=== PATIENT | male | born 1960 | race Caucasian/White ===

== ENCOUNTER 2019-06-16 01:29 | Outpatient (CLI) | payer OTHER, SELFPAY ==
--- NOTE | 2019-06-16 13:10 | DI.CTLCSR_ITS ---
SYMPTOMS/DIAGNOSIS: SMOKER, F17.[address] FOR LUNG CANCER SCREENING: Comparison is made with [id number]. A few scattered bilateral tiny calcified nodules are again noted. No new pulmonary nodules are identified. There is no evidence of adenopathy, pleural or pericardial effusions. No infiltrates are seen. There are no destructive bony lesions. Calcification is again seen in the right adrenal gland. There is nonobstructing stone in the left kidney. The heart size is normal. There is minimal aortic calcification. IMPRESSION: Lung Rads Category 1, negative. Continued annual low dose screening CT is recommended.
== END 2019-06-16 01:49 ==
PROVIDERS: PCP Nurse Practitioner Family; Visit Provider Nurse Practitioner Family
DX: Z12.2 Encounter for screening for malignant neoplasm of respiratory organs (principal); F17.210 Nicotine dependence, cigarettes, uncomplicated; R91.8 Other nonspecific abnormal finding of lung field
CPT/HCPCS: G0297

== ENCOUNTER 2019-06-21 10:54 | Day surgery (SDC) | payer OTHER, SELFPAY ==
[2019-06-21 11:30] VITALS: BP 121/79; PULSE 58; RESP 18; TEMP 36.3; O2SAT 98
[2019-06-21] MEDS: Lactated Ringers 1,000 ML 80 ML IV (12:00)
[2019-06-21] MEDS: ceFAZolin 1 GM/50 ML BAG IVPB (13:15)
--- NOTE | 2019-06-21 14:19 | W.PM.DSUDISC ---
Discharge Plan Disposition Patient Disposition: HOME Condition: Good Discharge Details Reason For Visit: Partial palmar fasciectomy R Attending Provider: Dallas Schaeffer Primary Care Provider: Meena Resendiz Home Meds and New Rx's Prescriptions: New hydrocodone-acetaminophen 5-325 mg tablet 1 tab PO Q6H PRN (Reason: pain) Qty: 14 RF: 0 No Action trazodone 150 mg tablet 150 mg PO QHS RF: 0 Discharge Instructions Additional Instructions: Keep dressings and splint dry and intact until return. Cover with plastic bag sealed with rubber band around forearm to shower. Wiggle fingers R hand 10 times/hour when awake to decrease swelling. Follow up with in 2 weeks. Take tylenol or ibuprofen for mild pain. Take hydrocodone for breakthru pain, if needed. Referrals: Dallas Schaeffer MD [ [facility] STAFF PHYSICIAN] - (f/u in 2 weeks.) Equipment/Supplies: Splint Activity:: Activity as Tolerated Remove Dressings/Wound Care:: Do Not Remove Shower/Bathe:: Cover Diet:: As Tolerated Discharge Orders Discharge Orders: Discharge Order (Routine); Ordered 06/21/19 Ordered By: Dallas Schaeffer DS: Diagnosis Discharge Diagnosis (1) Fasciitis: Status: Acute
[2019-06-21 15:00] VITALS: BP 131/82; PULSE 55; RESP 18; TEMP 36.7; O2SAT 94
[2019-06-21] MEDS: oxyCODONE-CR 10 MG TABCR PO (15:00)
--- NOTE | 2019-06-22 06:28 | ROE_ITS ---
REPORT OF OPERATIVE PROCEDURE DATE OF PROCEDURE June 21, 2019 PREOPERATIVE DIAGNOSES Nodular palmar fascitis right with MP joint contracture of the little finger. POSTOPERATIVE DIAGNOSES Nodular palmar fascitis right with MP joint contracture of the little finger. PROCEDURES Partial palmar fasciectomy right. Application of short arm splint. ANESTHESIA IV regional, John Smyth C.R.N.A. SURGEON Dallas Schaeffer M.D. PROFESSOR OF COMM[employer]ICATION [employer] ERWIN Okeefe INDICATIONS This is a 58-year-old white male who has nodular palmar fascitis bilaterally. On the right however, he has developed an MP joint contracture of the right little finger. This MP joint contracture is mor e than 30 degrees. He had one large band going to the little finger. The other digits appeared to be uninvolved. Because of the MP joint contracture, excision of diseased palmar fascia and the longitudi nal band was recommended. The risks and complications of the procedure were explained to the patient in detail preoperatively. PROCEDURE The patient was taken to the Operating Room on 06/21/2019. He was placed supine on the Operating Tab le. IV regional anesthesia was administered to the right upper extremity. Once good anesthesia was obtained, the right hand, wrist and forearm were prepped and draped free in the usual sterile fashion . The aluminum hand retractor was then placed on the right hand extending the digits. A Jack-type zigzag incision was then made basically over the single longitudinal fascial band starting at the rad ial side of the middle flexion crease of the little finger and carried across the other flexion creas es in the palmar in a zigzag fashion to end at the distal edge of the volar carpal ligament. Sharp dissection was used to create full-thickness skin flaps and free the skin from the diseased pal mar fascia. I perforated the skin in one place while making the flaps it was not thought to be of any consequence. Once the skin flaps had been developed, I started proximally at the distal edge of the volar carpal ligament and incised the palmar fascia. I then freed up the palmar fascia in a proximal distal direction. The digital nerves were identified on either side of the little finger metacarpal, they were protected while the palmar fascia was dissected from it. The dissection was carried out to the level of the PIP joint over the flexor sheath. The diseased fascia was removed completely. Proxim al nicole of the flexor sheath of the little finger was incised to prevent future triggering of the f pippa. At this point, the wound was irrigated with saline solution. The wound margins were infiltrate d with 0.5% Marcaine with epinephrine solution. The skin edges were loosely approximated with interru pted #4-0 Nylon sutures. The wound was dressed with Xeroform gauze, fluff gauze, 4x4s in the palmar b etween the fingers, and wrapped with a Kerlix bandage. A volar fiberglass splint was then applied car rying it just beyond the MP joint of the little finger. It was applied with a 4-inch Enrique bandage. The IV regional anesthesia was reversed without complications. The patient tolerated the procedure well and was discharged to the Recovery Room in good condition. The patient was discharged home from the Day Surgery Unit when fully recovered from his IV regional a nesthesia. He was given instructions to elevate his right hand above heart level as much as possible for the next 24 hours. He was encouraged to wiggle his fingers 10 times an hour while awake to prevent swelling. He is to keep the dressings intact and dry until he follows up with Dr. Schaeffer in two weeks. He will take Tylenol or ibuprofen for mild pain. He was given a prescription for breakthrough pain of hydrocodone with APAP 5/325, 1 tablet every 6 hours as needed.
== END 2019-06-21 15:30 | disposition home or self-care (01) ==
PROVIDERS: PCP Nurse Practitioner Family; Visit Provider Orthopaedic Surgery
PROC: (CPT 26123; principal; 2019-06-21 13:15)
DX: M72.8 Other fibroblastic disorders (principal); M24.541 Contracture, right hand
CPT/HCPCS: 26123; J0690; J1100; J1885; J2250; J2405; J3010

== ENCOUNTER 2020-12-12 19:24 | Outpatient (REF) | payer OTHER, SELFPAY ==
[2020-12-12 21:42] LABS: Abs Immature Grans 0.02 10^3/uL (0.0-0.06); Absolute Basophil Count 0.08 10^3/uL (0.0-0.2); Absolute Eosinophil Count 0.33 10^3/uL (0.0-0.7); Absolute Lymphocyte Count 1.74 10^3/uL (1.2-3.4); Absolute Monocyte Count 0.67 10^3/uL (0.1-0.8); Absolute Neutrophil Count 4.03 10^3/uL (1.2-6.7); Basophils % 1.2; Eosinophils % 4.8; HCT 43.5 % (40.0-50.0); HGB 14.2 g/dL (13.5-17.5); Immature Grans % 0.3; Lymphocytes % 25.3; MCH 29.4 pg (27.0-33.0); MCHC 32.6 % (32.0-36.0); MCV 90.1 fL (80-95); MPV 11.3 fL (8.0-11.0); Monocytes % 9.8; Neutrophils % 58.6; Nucleated RBC 0 %; Platelet Count 242 10^3/uL (130-400); RBC 4.83 10^6/uL (4.36-5.78); RDW 13.2 % (11.8-14.1); RDW-SD 44.3 fL; WBC 6.87 10^3/uL (4.4-10.8)
[2020-12-12 21:47] LABS: Iron 94 ug/dL (65-175); Total Iron Binding Capacity 336 ug/dL (250-450); Transferrin Sat 28 % (20-55)
[2020-12-12 22:00] LABS: ALT 21 U/L (16-63); AST 21 U/L (15-37); Albumin 4.1 g/dL (3.4-5.0); Alkaline Phosphatase 66 U/L (46-116); Anion Gap 8.4 mmol/L (3-11); BUN 12 mg/dL (7-18); Bilirubin, Total 0.6 mg/dL (0.2-1.0); CO2 26.6 mmol/L (21.0-32.0); Calcium 8.9 mg/dL (8.5-10.1); Calculated LDL 94 mg/dL (<100); Chloride 104 mmol/L (98-107); Cholesterol 154 mg/dL (<200); Glucose 67 mg/dL (74-106); HDL Cholesterol 51 mg/dL (40-60); Magnesium 2.1 mg/dL (1.8-2.4); Potassium 4.2 mmol/L (3.5-5.1); Sodium 139 mmol/L (136-145); TSH (W/Ref FT4) 1.23 uIU/mL (0.36-3.74); Total Protein 7.1 g/dL (6.4-8.2); Triglyceride 45 mg/dL (<150)
== END 2020-12-12 19:44 ==
LOC: NCHCN 19:24
PROVIDERS: PCP Nurse Practitioner Family; Visit Provider Nurse Practitioner Family
DX: R03.0 Elevated blood-pressure reading, without diagnosis of hypertension (principal); Z00.00 Encounter for general adult medical examination without abnormal findings; F17.210 Nicotine dependence, cigarettes, uncomplicated; G47.33 Obstructive sleep apnea (adult) (pediatric); G47.00 Insomnia, unspecified; G47.61 Periodic limb movement disorder; R22.33 Localized swelling, mass and lump, upper limb, bilateral; L80 Vitiligo
CPT/HCPCS: 80053; 80061; 83540; 83550; 83735; 84443; 85025

== ENCOUNTER 2020-12-25 02:00 | Outpatient (CLI) | payer OTHER, SELFPAY ==
--- NOTE | 2020-12-25 12:54 | DI.CTLCSR_ITS ---
EXAM: CT CHEST LUNG CANCER SCREEN CLINICAL HISTORY: SCREENING FOR LUNG CA, CURRENT SMOKER, F17.210 TECHNIQUE: Imaging Protocol: Axial computed tomography images with coronal and sagittal reformatted images were created and reviewed COMPARISON: CT CT CHEST LUNG CANCER SCREEN from 06/16/2019 FINDINGS: Tracheobronchial tree: Patent where visualized. Mediastinum and Savana: No dominant adenopathy or fluid collection. There is a small hiatal hernia. Pulmonary parenchyma: No consolidation or dominant measurable mass. Mild peripheral pulmonary scarrin g is noted. There are scattered calcified granuloma. Lung Nodules: No noncalcified pulmonary nodules. Pleura: No effusion or pneumothorax. Heart: The heart is not dilated. No coronary artery calcifications are seen. No significant pericardi al effusion. Aorta: Thoracic aorta non-dilated.Mild atherosclerosis. Upper abdomen: Stable right adrenal calcification. Nonobstructing stones are seen in the upper pole of the left kidney. The largest measures 0.4 cm. Bones: Degenerative changes are seen in the spine. There is a mild left convex scoliosis of the thor acic spine. Soft Tissues: Unremarkable. IMPRESSION: No noncalcified pulmonary nodules. Lung RADS Cat 1 - Negative: No nodules and definitely benign nodules Lung-RADS 1.0 CATEGORIES: Category 0 - Prior chest CT exam(s) being located for comparison. Category 1 - Annual screening in 12 months. No nodules or definitely benign nodules. Category 2 - Annual screening in 12 months. Benign appearance. Nodules with low likelihood of becomin g active cancer. Category 3 - 6-month follow-up. Probably benign. Short-term follow-up suggested. Nodules with low lik elihood of becoming active cancer. Category 4A - 3-month follow-up and CT/PET if >8 mm in size. Suspicious finding. Findings which requi re additional testing. Category 4B - Findings which require additional testing and tissue sampling. Suspicious finding. C Added to Any of the Above - History of prior lung cancer screening. S Added to Any of the Above - Significant unexpected other finding. RADIATION DOSE DELIVERED: 80.06mGy.cm Total DLP DATA REPOSITORY: All CT scans at this facility are submitted to the National Radiology Data Registry (NRDR) Dose Index Registry (DIR) with the [employer] (ACR). RADIATION OPTIMIZATION: All CT scans at this facility use at least one of these dose optimization te chniques: automated exposure control; mA and/or kV adjustment per patient size (includes targeted exa ms where dose is matched to clinical indication); or iterative reconstruction.
== END 2020-12-25 02:01 | disposition home or self-care (01) ==
LOC: DI 02:01
PROVIDERS: PCP Nurse Practitioner Family; Visit Provider Nurse Practitioner Family
DX: F17.210 Nicotine dependence, cigarettes, uncomplicated (principal); R91.8 Other nonspecific abnormal finding of lung field
CPT/HCPCS: 71271

== ENCOUNTER 2022-01-07 15:32 | Outpatient (REF) | payer OTHER, SELFPAY ==
[2022-01-07 22:06] LABS: Anion Gap 6.8 mmol/L (3-11); BUN 20 mg/dL (7-18); CO2 30.2 mmol/L (21.0-32.0); Calcium 8.8 mg/dL (8.5-10.1); Chloride 104 mmol/L (98-107); Glucose 88 mg/dL (74-106); Potassium 4.6 mmol/L (3.5-5.1); Sodium 141 mmol/L (136-145)
== END 2022-01-07 15:33 | disposition home or self-care (01) ==
LOC: NCHCN 15:32
PROVIDERS: PCP Nurse Practitioner Family; Visit Provider Nurse Practitioner Family
DX: I10 Essential (primary) hypertension (principal)
CPT/HCPCS: 80048

== ENCOUNTER 2022-03-26 01:50 | Outpatient (CLI) | payer OTHER, SELFPAY ==
--- NOTE | 2022-03-26 | DI.MRI_ITS ---
Exam(s) MR LUMBAR SPINE WO EXAM: MR LUMBAR SPINE WO CLINICAL HISTORY: LOW BACK PAIN M54.59 LEG LENGTH DISCREPANCY M21.70. TECHNIQUE: Multiplanar multisequence MRI was performed. COMPARISON: No exams were available for comparison FINDINGS: MR examination lumbosacral spine was performed according to the usual protocol. No significant bony signal abnormality seen. Mild to moderate facet hypertrophic degenerative changes noted at L4-5 and L5-S1 bilaterally. There is signal loss in intervertebral discs at L4-5 and L5-S1 consistent with disc degeneration. Conus medullaris appears intact. No bony central canal spinal stenosis identified. From the T11-12 through L3-4 levels, there is no evidence of a disc herniation, central canal spinal stenosis, or neural foraminal stenosis. At L4-5, there is an apparent annular tear and there is a moderate disc bulge without evidence of sig nificant focal disc herniation. No neural foraminal narrowing. At L5-S1, there is right-sided neural foraminal narrowing secondary to facet hypertrophy and endplate hypertrophy at this level. IMPRESSION: No significant disc herniation identified. Right-sided neural foraminal narrowing noted at L5-S1 as described above. DATA REPOSITORY:
== END 2022-03-26 02:10 ==
LOC: DI 01:50
PROVIDERS: PCP Nurse Practitioner Family; Visit Provider Nurse Practitioner Family
DX: M54.59 Other low back pain (principal); M21.70 Unequal limb length (acquired), unspecified site; M47.817 Spondylosis without myelopathy or radiculopathy, lumbosacral region
CPT/HCPCS: 72148

== ENCOUNTER 2023-02-16 18:01 | Outpatient (REF) | payer BC, SELFPAY ==
[2023-02-16 20:41] LABS: ALT 25 U/L (16-63); AST 28 U/L (15-37); Albumin 4.2 g/dL (3.4-5.0); Alkaline Phosphatase 68 U/L (46-116); Anion Gap 7.2 mmol/L (3-11); BUN 16 mg/dL (7-18); CO2 29.8 mmol/L (21.0-32.0); CREATININE 1.2 mg/dL (0.70-1.30); Calcium 9.1 mg/dL (8.5-10.1); Calculated LDL 97 mg/dL (<100); Chloride 103 mmol/L (98-107); Cholesterol 169 mg/dL (<200); Estimated GFR 68.38 (mL/min/1.73m2); Glucose 77 mg/dL (74-106); HDL Cholesterol 65 mg/dL (40-60); Potassium 4.5 mmol/L (3.5-5.1); Sodium 140 mmol/L (136-145); Triglyceride 39 mg/dL (<150)
== END 2023-02-16 18:02 | disposition home or self-care (01) ==
LOC: NCHCN 18:01
PROVIDERS: PCP Nurse Practitioner Family; Visit Provider Nurse Practitioner Family
DX: I10 Essential (primary) hypertension (principal); F17.210 Nicotine dependence, cigarettes, uncomplicated; G47.61 Periodic limb movement disorder; G47.00 Insomnia, unspecified; G47.33 Obstructive sleep apnea (adult) (pediatric)
CPT/HCPCS: 80053; 80061

== ENCOUNTER 2023-06-08 12:48 | Day surgery (SDC) | payer BC, SELFPAY ==
[2023-06-08 13:19] VITALS: BP 127/85; PULSE 78; RESP 17; TEMP 37; O2SAT 97
--- NOTE | 2023-06-08 15:17 | W.PM.DSUDISC ---
Date of service: 06/08/23 Time of Service: 15:20 Discharge Plan Disposition Patient Disposition: Home Condition: Good Discharge Details Reason For Visit: Left Dupuytren's Contracture Attending Provider: Nba Madden Primary Care Provider: Meena Resendiz Home Meds and New Rx's Prescriptions: New acetaminophen 500 mg tablet 500 mg PO Q6H PRN (Reason: pain) Qty: 60 2RF hydrocodone-acetaminophen 5-325 mg tablet 1 tab PO Q6H PRN (Reason: severe pain) Qty: 4 0RF Rx Instructions: Take one tablet up to every 6 hours as needed for severe postoperative pain ibuprofen 600 mg tablet 600 mg PO TID PRN (Reason: pain) Qty: 60 0RF Continued trazodone 150 mg tablet 150 mg PO QHS lisinopril 10 mg tablet 10 mg PO DAILY Discharge Instructions Additional Instructions: Dupuytren's Contracture Discharge Instructions Activity: You may use your fingers for light activity. You should limit any excessive motion or forceful gripping until the sutures have been removed. Dressings: You should keep the initial surgical dressing in place for at least 3 days. You may remove your dressings and get the wound wet after 3 days. You should keep the dressings and the wound clean at all times. You may keep the initial dressing in place until your follow-up but keep the wound covered with light gauze until the sutures are removed. Medications: - You should take Tylenol and Ibuprofen around the clock as prescribed or per prints and drawings curator's recommendations. - You have Hydrocodone prescribed for breakthrough pain control. Take only as needed and limit use as much as possible. This may cause constipation. Follow-up: 7-10 days for wound check and suture removal. Referrals: Nba Madden MD [ [facility] STAFF PHYSICIAN] - Activity:: Elevate Remove Dressings/Wound Care:: 72 hours Shower/Bathe:: 72 hours Diet:: As Tolerated Discharge Orders Discharge Orders: Discharge Order (Routine); Ordered 06/08/23 Ordered By: Gail Short
[2023-06-08] MEDS: Sodium Bicarbonate 50 MEQ/50 ML VIAL (16:02)
[2023-06-08] MEDS: Lidocaine 1% Multi-Dose W/EPI 1/100,000 50 ML VIAL (16:02)
[2023-06-08 16:15] VITALS: BP 141/84; PULSE 69; RESP 18; TEMP 37.1; O2SAT 95
--- NOTE | 2023-06-08 21:37 | W.PM.OP ---
Date of service: 06/08/23 Time of Service: 16:10 Operative Note Operative Note DATE OF PROCEDURE: 06/08/23 PRE-OP DIAGNOSIS: Dupuytren's Contracture - Left Hand POST-OP DIAGNOSIS: same PROCEDURE: Partial Palmar Fasciectomy - Left Hand SURGEON: Nba Madden ANESTHESIA TYPE: Local By Surgeon Refer to Anesthesia Record ESTIMATED BLOOD LOSS: 0 PATHOLOGY: none sent TOURNIQUET TIME: 0 COMPLICATIONS: None Patient was transported to: same day Patient's condition: stable Indications: Lebron is a 62 year old male who has had symptoms of Dupuytren's contracture of the left hand with a prominent nodule and contracture of the little finger. Nonoperative treatment options had been trialed. Given their failure, I offered operative intervention. I reviewed the technical details of a partial palmar fasciectomy. I reviewed the risk of the procedure to include bleeding, infection, pain, stiffness, tendon instability, damage nerves and vessels, recurrence, wound or skin healing difficulties. Despite these risks, the patient elected to proceed. Findings: There was a large nodular deformity of the palm with contracture of the little finger involving a central cord of the little finger and the ring finger. Procedure Description: Lebron was greeted in the preoperative holding area. Name and surgical site were confirmed. The history and physical was completed. The consent was reviewed the patient and signed. He was taken back to the operating room. The left hand was then prepped with ChloraPrep and draped in a standard fashion. A timeout was performed for safe surgery. The surgical site was drawn on the skin. The planned surgical field was anesthetized with sodium bicarbonate buffered 1% lidocaine with epinephrine. He tolerated this well and once it was confirmed to be set up surgery was proceeded. A incision was taken longitudinally over the proximal base of the central cord and then extended in an oblique fashion across the flexion creases extending towards the ring finger in order to capture some of the central cord of the ring finger which is less problematic. It was then taken all the way to the base of the little finger. The skin was incised sharply. The nodule which was present about the far ulnar aspect of the palm was intimately associated with the epidermis and therefore I excised the skin with this nodule and continued to elevate up the skin flaps to expose the palmar fibromatosis. Once the primary central cord was identified was transected proximally and elevated out of the hand from proximal to distal including the large nodule. This was taken all the way down to the base of the little finger where it seemed to attach to the flexor tendon aspect of the proximal phalanx. This was transected distally and there is no to be full extension of the little finger MP joint at this time. I then continue to work slightly more radially to identify the central cord affecting the ring finger. There is a small natatory cord component which was also transected and a portion of the central cord to the ring finger was also excised sharply. 2 areas of puckering of skin from attachment underlying cord were also released and some of this cord content was also resected as well. The wound was then thoroughly irrigated. There is no significant bleeding. The skin was reapproximated with #4-0 nylon sutures. The area of skin resection was able to be closed primarily. The wound was dressed with Xeroform followed by 4 x 4's. This was followed up with a conformer and Enrique wrap. At the end the case all counts were correct. Patient was transferred back to same day surgery area in stable condition.
== END 2023-06-08 16:46 | disposition home or self-care (01) ==
PROVIDERS: PCP Nurse Practitioner Family; Visit Provider Student in an Organized Health Care Education/Training Program
PROC: (CPT 26123; principal; 2023-06-08 14:45)
DX: M72.0 Palmar fascial fibromatosis [Dupuytren] (principal); I10 Essential (primary) hypertension
CPT/HCPCS: 26123

== ENCOUNTER 2023-09-24 08:48 | Day surgery (SDC) | payer BC, SELFPAY ==
--- NOTE | 2023-09-23 21:42 | W.COLOREPORT ---
Date of service: 09/24/23 Time of Service: 10:38 Colonoscopy Report Date of procedure: 09/24/23 Pre-op diagnosis general: CRC screen Post-op diagnosis procedure note: other (Diverticula and polyps) Surgeon: Gail Morrow Anesthesia Type: General:No Airway Estimated blood loss (mL): 1 Pathology: other Complications: None Disposition: same day Prep: Miralax/Dulcolax Retraction Time: 10 Procedure Description: After informed consent was obtained the patient was taken to the procedure room and placed in a left decubitous position. Monitors were applied and a time out was done. The patients name, date of , procedure, allergies to medications and metal in their body was reviewed. The patient was then sedated. Once sedated and comfortable a rectal exam was done. External exam was normal. Internal exam revealed a normal sphincter tone and no palpable masses. The prostate normal. The scope was then introduced and retrofelexed. No internal hemorrhoids were identified. The scope was then advanced to the cecum without difficulty. The TI and appendiceal orifice were identified. The prep was BBPS 3 in all segments for total of 9. The scope was then slowly retracted over 10 minutes back into the rectum. He had a small diverticula that do carry up to the splenic flexure. There is no signs of active bleeding or infection. He has a small flat 5 mm polyp at 20 cm. This is removed with a cold biting forcep. All specimen is retrieved and no bleeding is noted. The mucosa is pink and healthy with a normal vascular pattern. The scope was removed and the patient was woken up and taken back to Same day surgery in stable condition. The patient tolerated the procedure well and there were no immediate complications. Follow up: The patient should follow up in ~7 years unless, path pd, they develop changes in bowel habits or other new gastrointestinal complaints.
--- NOTE | 2023-09-23 21:45 | PDOC.DSDIS_ITS ---
Date of service: 09/24/23 Time of Service: 11:30 Discharge Plan Disposition Patient Disposition: Home Condition: Good Discharge Details Reason For Visit: colon scope Attending Provider: Gail Morrow Primary Care Provider: Meena Resendiz Home Meds and New Rx's Prescriptions: Continued trazodone 150 mg tablet 150 mg PO QHS lisinopril 10 mg tablet 10 mg PO DAILY Discontinued polyethylene glycol 3350 17 gram/dose powder 238 g PO ONCE Qty: 238 0RF Rx Instructions: take per colonoscopy instructions bisacodyl [Dulcolax (bisacodyl)] 5 mg tablet,delayed release (DR/EC) 5 mg PO ONCE Qty: 4 0RF Rx Instructions: take per colonoscopy instructions Discharge Instructions Additional Instructions: [facility] Colonoscopy Post- Op Instructions Instructions for Everyone who is given Anesthesia: For your safety, please do the following for the next twenty-four (24) hours: *Do Not operate a motor vehicle (car, truck, motorcycle, etc.) *Do Not drink alcoholic beverages or use any recreational drugs for the first 24 hours or while taking pain medications. The medications in your body may have a reaction that can be dangerous. *Do Not make any important decisions or sign any important papers. Findings: small polyp diverticula-make sure you are moving your bowels on a regular basis and you are not straining to go to the bathroom. If you find you are having problems with constipation or straining, then we recommend starting a daily fiber product such as Metamucil. Follow up: My office will send you a letter in 2 to 3 weeks time with the results of the polyp pathology and when we want you to repeat the colonoscopy, Probably 7 years time 1. No lifting over 20 pounds or strenuous activity for the first 24 hours after your procedure. After 24 hours there are no restrictions on your activity but you may feel fatigued for a few days. 2. After you arrive home you may have a light meal and return to your normal diet as you can tolerate it without feeling sick to your stomach. 3. You may have a bloated, gaseous feeling in your belly (abdomen) after a colonoscopy. Passing gas and belching will help. Walking or lying down on your left side with your knees flexed may relieve the discomfort. Call the office at [phone] (Office) or [phone] (Hospital) right away if you notice any of the following: a.Vomiting of blood or ?coffee ground stools?. b.Rectal bleeding 1Tbsp, blood clots or continuous bleeding. c.Severe belly (abdominal) pain. d.A hard distended belly (abdomen) and an inability to pass gas. 4. Please don?t expect to have a normal BM (bowel movement) for 2-3 days after your procedure. 5. If there are questions regarding the findings of your procedure, please contact your doctor 6. If you are unable to contact your doctor with a problem, contact the hospital at [phone]. 7. Continue all your regular medications unless directed otherwise. I understand the above instructions and have no questions. Signature of Patient or Adult Escort Name of Responsible Adult Escort Signature of Nurse Date/Time Stand Alone Forms: Anesthesia Discharge Inst., Vivi Hector ([facility]) Activity:: see above Diet:: see above Discharge Orders Discharge Orders: Discharge Order (Routine); Ordered 09/24/23 Ordered By: Gail Morrow DS: Diagnosis Discharge Diagnosis (1) SILVANO (obstructive sleep apnea): Status: Chronic (2) Smoker: (3) Hypertension: (4) Screening for malignant neoplasm of colon performed: Status: Acute Asessment and Plan: The patient is seen and examined after their colonoscopy.? The patient has been able to pass gas.? They are not having abdominal pain.? They have been able to tolerate liquids and a snack.? They do not have any nausea or vomiting.? They are not having any chest pain or shortness of breath.??? They are not having any rectal bleeding. Their vital signs have been stable-see nursing notes. We discussed findings during their colonoscopy, and any biopsies that were done/polyps that were removed. The patient will be sent a letter with any biopsy results, and when to repeat the colonoscopy.-see discharge instructions. Patient was given explicit instructions to follow-up regarding colonoscopy-refer to discharge instructions.? We reviewed resumption of medications. Patient verbalized understanding and discharged in stable and satisfactory condition- See nursing notes. (5) Diverticula of colon: Status: Acute
[2023-09-24 08:45] VITALS: BP 118/77; PULSE 73; RESP 18; TEMP 36.9; O2SAT 97
[2023-09-24] MEDS: Lactated Ringers 1,000 ML 80 ML IV (09:23)
--- NOTE | 2023-09-24 09:38 | W.ANESPRE ---
General Info Date of Service Date Performed: 09/24/23 Height: 5 ft 8 in Weight: 71.4 kg Body Mass Index (BMI): 23.9 Surgical Procedure: Operation Date: 09/24/23 09:50 Proposed Procedure Side Surgeon andrea Morrow, Meds Allergies and Home Medications Allergies Allergy/AdvReac Type Severity Reaction Status Date / Time No Known Allergies Allergy Verified 09/24/23 09:08 Home Medication Medication Instructions Recorded trazodone 150 mg tablet 150 mg PO QHS 06/06/19 lisinopril 10 mg tablet 10 mg PO DAILY 02/23/23 bisacodyl 5 mg tablet,delayed 5 mg PO ONCE colonscopy bowel prep 09/16/23 release (Dulcolax (bisacodyl)) #4 tabs polyethylene glycol 3350 17 238 g PO ONCE colonoscopy prep 09/16/23 gram/dose oral powder #238 grams Current Visit Medications: Current Medications Generic Name Dose Route Start Last Admin Trade Name Freq PRN Reason Stop Dose Admin Hyoscyamine Sulfate 0.125 mg 09/24/23 08:34 Hyoscyamine 0.125 Mg Sl/Oral/Chew SL 10/24/23 08:33 DIRECTED PRN Ringer's Solution 1,000 mls @ 80 mls/hr 09/24/23 06:00 09/24/23 09:23 IV 10/23/23 23:59 80 mls/hr INFUSION PERLITA Administration IV Miscellaneous Supplies 1 each 09/24/23 06:00 Iv Access IV 10/23/23 23:59 DIRECTED PERLITA Ondansetron HCl 4 mg 09/24/23 08:34 Ondansetron 4 Mg/2 Ml Vial IVP 10/24/23 08:33 Q4H PRN PRN Nausea / Vomiting Sodium Chloride 0 ml 09/24/23 06:00 Normal Saline Flush 10 Ml Syr IV 10/23/23 23:59 PRN PRN Sodium Chloride 0 ml 09/24/23 06:00 Normal Saline 10 Ml Vial IJ 10/23/23 23:59 DIRECTED PRN Sterile Water 0 ml 09/24/23 06:00 Water,Injection,Sterile 10 Ml Vial IJ 10/23/23 23:59 DIRECTED PRN PFSH Active Problems Active Problems: Problem Status Onset Code Screening for malignant neoplasm of colon performed Z12.11 Dupuytren's contracture of left hand M72.0 SILVANO (obstructive sleep apnea) G47.33 History of hand surgery Z98.890 Fasciitis M72.9 Medical History Medical History Nodule of skin of both hands Low back pain Erectile dysfunction Smoker Insomnia Hearing loss Periodic limb movement disorder Hypertension Umbilical hernia History of hearing loss History of sleep apnea Surgical History Surgical History History of hand surgery Right partial palmar fasciectomy DOS: 06/21/19 History of colonoscopy (~02/19/12) History of hernia repair Tobacco Smoking/Tobacco Use Status: Current every day Tobacco Type: cigarettes Years smoked: 40 Alcohol Alcohol Intake: current Alcohol intake frequency: a few times a month Alcohol type: beer Substance Use Substance use: Never Substance use type: does not use Vital Signs and Lab Results Vital Signs Most Recent Vital Signs in EMR: Most Recent Vital Signs Temp Pulse Resp BP Pulse Ox 36.9 C 73 18 118/77 97 09/24/23 08:45 09/24/23 08:45 09/24/23 08:45 09/24/23 08:45 09/24/23 08:45 Lab Results Blood Type / Crossmatch: No Data to Display Complete Blood Count: No Data to Display Complete Metabolic Panel: No Data to Display Liver Function Panel: No Data to Display Coagulation Panel: No Data to Display Cardiac Panel: No Data to Display Arterial Blood Gas: No Data to Display Venous Blood Gas: No Data to Display Pancreas Panel: No Data to Display Thyroid Panel: No Data to Display Infectious Disease: No Data to Display Blood Cultures: No Data to Display Toxicology Panel: No Data to Display Anesthesia Assessment and Plan Anesthesia History Personal History: No History of Anesthesia Complications Family History: No Family History of Anesthesia Complications Exercise Tolerance Exercise Tolerance: Metabolic Equivalents>4 Pertinent Negatives Pertinent Negatives: No Symptoms of GERD, No Major Cardiovascular Symptoms or Complaints and No History of CVA/TIA Cardiac & Pulmonary Exam Cardiac Exam: Normal S1/S2 Heart Sounds Pulmonary Exam: Clear Bilateral Breath Sounds Implantable Cardiac Device Does patient have a Pacemaker or an ICD?: No Airway Exam Known Difficult Airway: No Mallampati Class: 2 Mouth Opening: Normal (> 3cm) Thyromental Distance: Less than 3 cm Facial Hair: Full Jones Neck Range of Motion: Full ROM Neck Circumference: Normal Teeth Condition: Removable Dentures/Plates Upper and Removable Dentures/Plates Lower ASA Classification ASA Score: ASA 2 Emergency Case?: No NPO Status NPO Status: NPO Clears >2 hours, Solids >8 hours Anesthesia Plan Resuscitation Status: Full Code Anesthesia Technique: General Anesthesia Airway Planned: Natural Airway Monitors Used: Standard Monitors
[2023-09-24 09:41] VITALS: BMI 23.9
--- NOTE | 2023-09-24 10:30 | BOWEL_PTH ---
PATIENT: Lebron Brewer LOC: [facility] U#:[id number] AGE/SX: 63/M ROOM: RE09/24/[address]: Gail Morrow : 1960 BED: DIS: 09/24/2023 SPEC #: [id number] RECD: 09/24/23 12:53 STATUS: SOLEDAD REQ #: [id number] BARBARA: 09/24/23 10:[address]: Gail Morrow DEPT: Surgical Specimen RECD BY: Alyssa Glasgow ENTERED: 09/24/23 12:54 SP TYPE: Bowel OTHR DR: Meena Rseendiz Tissues: 1 - BIOPSY BOWEL Procedures: GROSS AND MICRO LEVEL 4 Comments: [id number]
[2023-09-24 10:40] VITALS: BP 102/73; PULSE 66; RESP 16; TEMP 36.6; O2SAT 96
[2023-09-24 11:08] VITALS: BP 110/80; PULSE 66; RESP 18; TEMP 36.6; O2SAT 97
--- NOTE | 2023-09-24 11:42 | W.ANESPOSTOP ---
Postoperative Evaluation Date, Time and Location Date Performed: 09/24/23 Time Performed: 11:09 Patient Location: Day Surgery Unit Vital Signs Most Recent Imported Vital Signs: Most Recent Vital Signs Temp Pulse Resp BP Pulse Ox 36.6 C 66 18 110/80 97 09/24/23 11:08 09/24/23 11:08 09/24/23 11:08 09/24/23 11:08 09/24/23 11:08 Pain Score Most Recent Pain Score: Most Recent Pain Score Pain Level 0 09/24/23 11:08 Assessment Mental Status: Awake (Alert & Oriented to Patient Baseline) Airway and Respiratory Function: Patent airway with normal (patient baseline) respiratory exam Cardiovascular Function: Hemodynamically Stable Hydration Status: Adequately Hydrated Nausea & Vomiting: No Nausea or Vomiting Pain: Pt. Denies Any Pain Peripheral Nerve Block: Patient did not receive a nerve block
== END 2023-09-24 11:40 | disposition home or self-care (01) ==
PROVIDERS: PCP Nurse Practitioner Family; Visit Provider Surgery
PROC: 0DJD8ZZ Inspection of Lower Intestinal Tract, Via Natural or Artificial Opening Endoscopic (ICD-10-PCS; CPT 45378; principal; 2023-09-24 09:45)
DX: Z12.11 Encounter for screening for malignant neoplasm of colon; K63.5 Polyp of colon; K57.30 Diverticulosis of large intestine without perforation or abscess without bleeding; I10 Essential (primary) hypertension; F17.200 Nicotine dependence, unspecified, uncomplicated
CPT/HCPCS: 45380; 88305; J2001

== ENCOUNTER 2023-10-25 10:58 | Emergency (ER) | payer BC, SELFPAY ==
--- NOTE | 2023-10-25 10:45 | RT.EKG_ITS ---
APPROVED REPORT Exam: Resting ECG Reason for Exam: dizziness Patient Location: E HR:82 bpm ECG Measurements Heart Rate 82 AXIS NM 187 P 61 QRSd 141 QRS 13 QT 378 T 49 QTc 441 Conclusion Sinus rhythm...normal P axis, V-rate 60- 99 Right bundle branch block...QRSd>120, terminal axis(90,270)
[2023-10-25 11:00] VITALS: BP 161/95; PULSE 84; RESP 18; O2SAT 98
[2023-10-25 11:24] VITALS: RESP 18
--- NOTE | 2023-10-25 12:15 | DI.MRI_ITS ---
Exam(s) MR BRAIN WO EXAM: MR BRAIN WO CLINICAL HISTORY: intermittent vertigo TECHNIQUE: Multiplanar multisequence MRI of the brain was performed. COMPARISON: No exams were available for comparison FINDINGS: CEREBRAL PARENCHYMA: There is no evidence of intracranial hemorrhage, mass effect, or shift of midline structures. There are no extra-axial fluid collections. Ventricles are not enlarged or shifted. There is no significant signal abnormality in the cerebellar hemispheres. Some signal abnormality in the central devonte is noted and there are multiple foci of FLAIR bright signal abnormality in the Meme and supra ventricular white matter. There is no associated hemorrhage or surrounding edema nor rest ricted diffusion. There is no abnormal signal abnormality in the periventricular white matter. There is no significant focal signal abnormality evident on diffusion imaging to suggest acute ischem ic event. PITUITARY GLAND: No mass nor parasellar abnormality. No obvious abnormality in the cavernous sinuses. FLOW VOIDS: The expected flow void are noted. No evidence of obvious aneurysm nor obvious vascular ma lformation. PARANASAL SINUSES: The visualized paranasal sinuses appear unremarkable. No obvious finding ORBITS: No obvious findings. IMPRESSION: There are multiple FLAIR bright white matter foci of signal abnormality in the periventricular white matter and devonte, consistent with chronic small vessel disease. No evidence of acute infarct. No evidence of hemorrhage. No ventriculomegaly. DATA REPOSITORY:
[2023-10-25 12:48] LABS: Abs Immature Grans 0.01 10^3/uL (0.0-0.06); Absolute Basophil Count 0.09 10^3/uL (0.0-0.2); Absolute Eosinophil Count 0.32 10^3/uL (0.0-0.7); Absolute Lymphocyte Count 1.84 10^3/uL (1.2-3.4); Absolute Monocyte Count 0.63 10^3/uL (0.1-0.8); Absolute Neutrophil Count 4.77 10^3/uL (1.2-6.7); Basophils % 1.2; Eosinophils % 4.2; HCT 38.1 % (40.0-50.0); HGB 12.6 g/dL (13.5-17.5); Immature Grans % 0.1; MCH 30.2 pg (27.0-33.0); MCHC 33.1 % (32.0-36.0); MCV 91 fL (80-95); MPV 10.9 fL (8.0-11.0); Monocytes % 8.2; Neutrophils % 62.3; Platelet Count 244 10^3/uL (130-400); RBC 4.17 10^6/uL (4.36-5.78); RDW 14.1 % (11.8-14.1); RDW-SD 47.8 fL; WBC 7.66 10^3/uL (4.4-10.8)
[2023-10-25 13:05] LABS: ALT 27 U/L (16-63); AST 27 U/L (15-37); Albumin 3.9 g/dL (3.4-5.0); Alkaline Phosphatase 55 U/L (46-116); Anion Gap 6.5 mmol/L (3-11); BUN 20 mg/dL (7-18); Bilirubin, Total 0.8 mg/dL (0.2-1.0); CO2 31.5 mmol/L (21.0-32.0); CREATININE 1.1 mg/dL (0.70-1.30); Calcium 8.6 mg/dL (8.5-10.1); Chloride 103 mmol/L (98-107); Estimated GFR 75.43 (mL/min/1.73m2); Glucose 83 mg/dL (74-106); Magnesium 1.7 mg/dL (1.8-2.4); Potassium 3.6 mmol/L (3.5-5.1); Sodium 141 mmol/L (136-145); Troponin I < 50 ng/L (<or=60)
--- NOTE | 2023-10-25 13:33 | ED.GENADUL_ITS ---
Discharge Plan Disposition Patient Disposition: Home Condition: Stable Discharge Details Clinical Impression: Dizziness, Hypertension Primary Care Provider: Meena Resendiz ED Provider: Johan Alberts Home Meds and New Rx's Prescriptions: New meclizine 25 mg tablet 25 mg PO BID PRN (Reason: dizziness) Qty: 30 0RF Continued trazodone 150 mg tablet 150 mg PO QHS lisinopril 10 mg tablet 10 mg PO DAILY simvastatin 10 mg tablet 10 mg PO DAILY Patient Comments: TAKE 1 TABLET BY MOUTH AT BEDTIME Discharge Instructions Instructions: Vertigo (ED), Hypertension (ED) Additional Instructions: Please follow-up with your primary care physician. Be sure to discuss your elevated blood pressure. Adjustments to your antihypertensive medication may be necessary. Please contact your primary care physician to arrange follow-up - call today. Return to the ER immediately for any worsening or new concerning symptoms. Referrals: Meena Resendiz [Primary Care Provider] - Medical Decision Making -- 63-year-old male here with new onset vertigo that started yesterday and has been intermittent since onset. He is hypertensive. Patient has no focal neurologic deficits on examination. He has no dizziness at this time. Screening EKG was reviewed and interpreted by me: Please report, sinus rhythm 82 bpm, right bundle branch block. 255p --MRI of the brain was interpreted by radiology: There are multiple FLAIR bright white matter foci of signal abnormality in the periventricular white matter and devonte, consistent with chronic small vessel disease. No evidence of acute infarct. No evidence of hemorrhage. No ventriculomegaly. CTA of the brain and neck interpreted by radiology: 1. Patent carotid arteries in the neck. No hemodynamically significant stenosis. 2. Patent vertebral arteries. 3. Patent intracranial arteries. No ring enhancing lesions in the brain. No abnormal meningeal enhancement. 4. Chronic small-vessel white matter ischemic changes in the periventricular white matter.. This is most evident around the atrium of the left lateral ventricle. Suspect peripheral vertigo. I will give Antivert and have him follow-up with his primary care physician. Disposition decision was made weighing the risks and benefits of hospitalization versus outpatient treatment, the risk for further decompensation, and the patient's wishes. The patient was stable and requested discharge. Prior to discharge, my usual and customary return precautions were reviewed with the patient - this included follow-up instructions and reason to return to the emergency department if condition worsens, does not improve as expected, or other new concerns arise. Lab Data Lab results reviewed: Yes I reviewed the patient's lab results. Labs: Laboratory Tests Range/Units 10/25/23 10/25/23 11:22 14:27 WBC (4.4-10.8) 10^3/uL 7.66 RBC (4.36-5.78) 10^6/uL 4.17 L Hgb (13.5-17.5) g/dL 12.6 L Hct (40.0-50.0) % 38.1 L MCV (80-95) fL 91 MCH (27.0-33.0) pg 30.2 MCHC (32.0-36.0) % 33.1 RDW (11.8-14.1) % 14.1 Plt Count (130-400) 10^3/uL 244 MPV (8.0-11.0) fL 10.9 Immature Gran % 0.1 Neutrophils % 62.3 Lymphocytes % 24.0 Monocytes % 8.2 Eosinophils % 4.2 Basophils % 1.2 Nucleated RBC % (0.0-0.3) % 0.0 Absolute Neutrophils (1.2-6.7) 10^3/uL 4.77 Absolute Lymphocytes (1.2-3.4) 10^3/uL 1.84 Absolute Monocytes (0.1-0.8) 10^3/uL 0.63 Absolute Eosinophils (0.0-0.7) 10^3/uL 0.32 Absolute Basophils (0.0-0.2) 10^3/uL 0.09 Sodium (136-145) mmol/L 141 Potassium (3.5-5.1) mmol/L 3.6 Chloride (98-107) mmol/L 103 Carbon Dioxide (21.0-32.0) mmol/L 31.5 Anion Gap (3-11) mmol/L 6.5 BUN (7-18) mg/dL 20 H Creatinine (0.70-1.30) mg/dL 1.1 Est GFR (CKD-EPI 2020) (mL/min/1.73m2) 75.43 Glucose (74-106) mg/dL 83 Calcium (8.5-10.1) mg/dL 8.6 Magnesium (1.8-2.4) mg/dL 1.7 L Total Bilirubin (0.2-1.0) mg/dL 0.8 AST (15-37) U/L 27 ALT (16-63) U/L 27 Alkaline Phosphatase (46-116) U/L 55 Troponin I (<or=60) ng/L < 50 < 50 Total Protein (6.4-8.2) g/dL 7.0 Albumin (3.4-5.0) g/dL 3.9 HPI General Mode of arrival: ambulatory . Date/Time Provider Initiated Documentation: 10/25/23 11:17 . Limitations to Documentation: no limitations . Information obtained by: patient . HPI Narrative: 63-year-old male presents with chief complaint of dizziness. Patient notes intermittent room spinning dizziness that started yesterday. He had a few episodes this morning. Patient describes sudden room spinning during episodes that last minutes. No associated presyncope or syncope. No associated headache, visual change, focal numbness or weakness. Patient denies chest pain or shortness of breath. Related Data Home Medications Medication Instructions Recorded Confirmed trazodone 150 mg tablet 150 mg PO QHS 06/06/19 10/25/23 lisinopril 10 mg tablet 10 mg PO DAILY 02/23/23 10/25/23 meclizine 25 mg tablet 25 mg PO BID PRN dizziness #30 tabs 10/25/23 simvastatin 10 mg tablet 10 mg PO DAILY 10/25/23 10/25/23 Previous Rx's Medication Instructions Recorded meclizine 25 mg tablet 25 mg PO BID PRN dizziness #30 tabs 10/25/23 Allergies Allergy/AdvReac Type Severity Reaction Status Date / Time No Known Allergies Allergy Verified 10/25/23 11:03 General Stated Complaint: Dizzy/Sync SAEED: 3 Review of Systems All systems reviewed & are unremarkable except as noted in HPI and below Constitutional Constitutional: Denies fever(s) ENT Ears, Nose, Mouth, and Throat: Reports vertigo and Denies otalgia Neurologic Neurologic: Reports vertigo PFSH All Active Problems (Updated 10/25/23 @ 15:02 by Johan Alberts MD) Hypertension (Chronic) Dizziness (Acute) Diverticula of colon (Acute) Screening for malignant neoplasm of colon performed (Acute ~09/24/23) hyperplastic polyp, Stoiber Dupuytren's contracture of left hand (Acute) S/P partial palmar fasciectomy: 06/08/2023 SILVANO (obstructive sleep apnea) (Chronic) History of hand surgery (Acute) R hand Fasciitis (Acute) Medical History Nodule of skin of both hands Low back pain Erectile dysfunction Smoker Insomnia Hearing loss Periodic limb movement disorder Hypertension Umbilical hernia History of hearing loss History of sleep apnea Surgical History History of hand surgery Right partial palmar fasciectomy DOS: 06/21/19 History of colonoscopy (~09/2023) History of hernia repair Family History Other Cancer Social History Smoking/Tobacco Use Status: Current every day Tobacco Type: cigarettes Years smoked: 40 Smoking risk assessment performed?: Yes Alcohol Intake: current Alcohol Intake frequency: a few times a month Alcohol type: beer Drug use: Never Substance use type: does not use Housing: house Current gender identity: male Do you feel safe at home: Yes Do you feel safe in your relationship?: Yes Exam Const General: cooperative and no acute distress HENMT Head: normocephalic and atraumatic Mouth: moist mucous membranes Eyes Sclera: normal sclerae EOM: EOM intact bilaterally Neck Neck: trachea midline and supple Resp Auscultation: clear to auscultation bilaterally, no rales, no rhonchi and no wheezes Cardio Rate: regular rate and not tachycardic Rhythm: regular rhythm GI Palpation: soft, not firm, no guarding, no masses, not rigid and nontender Skin General skin exam: no rashes or lesions noted Neuro General: patient alert, patient awake, patient oriented x3 and tone normal Extrem General: no edema Psych Appearance: grossly normal Mental Status: mental status grossly normal Speech and Movement: speech and movement normal Affect: normal affect Attitude: cooperative Thought Process: normal Thought Content: normal Insight: insight good Judgment: judgment good Course Vital Signs Vital signs: Vital Signs Pulse 84 10/25/23 11:00 Respiratory Rate 18 10/25/23 11:00 Blood Pressure 161/95 H 10/25/23 11:00 Pulse Oximetry 98 10/25/23 11:00 Pulse 84 10/25/23 11:00 Respiratory Rate 18 10/25/23 11:24 Respiratory Effort Normal 10/25/23 11:24 Respiratory Depth Normal 10/25/23 11:24 Respiratory Pattern Normal 10/25/23 11:24 Blood Pressure 161/95 H 10/25/23 11:00 Blood Pressure Position Sitting 10/25/23 11:00 Pulse Oximetry 98 10/25/23 11:00 Oxygen Delivery Method Room Air 10/25/23 11:00 Oxygen Flow Rate 0 10/25/23 11:00 Lab/Test Results Lab/Test Results: Laboratory Tests Range/Units 10/25/23 11:22 WBC (4.4-10.8) 10^3/uL 7.66 RBC (4.36-5.78) 10^6/uL 4.17 L Hgb (13.5-17.5) g/dL 12.6 L Hct (40.0-50.0) % 38.1 L MCV (80-95) fL 91 MCH (27.0-33.0) pg 30.2 MCHC (32.0-36.0) % 33.1 RDW (11.8-14.1) % 14.1 Plt Count (130-400) 10^3/uL 244 MPV (8.0-11.0) fL 10.9 Immature Gran % 0.1 Neutrophils % 62.3 Lymphocytes % 24.0 Monocytes % 8.2 Eosinophils % 4.2 Basophils % 1.2 Nucleated RBC % (0.0-0.3) % 0.0 Absolute Neutrophils (1.2-6.7) 10^3/uL 4.77 Absolute Lymphocytes (1.2-3.4) 10^3/uL 1.84 Absolute Monocytes (0.1-0.8) 10^3/uL 0.63 Absolute Eosinophils (0.0-0.7) 10^3/uL 0.32 Absolute Basophils (0.0-0.2) 10^3/uL 0.09 Sodium (136-145) mmol/L 141 Potassium (3.5-5.1) mmol/L 3.6 Chloride (98-107) mmol/L 103 Carbon Dioxide (21.0-32.0) mmol/L 31.5 Anion Gap (3-11) mmol/L 6.5 BUN (7-18) mg/dL 20 H Creatinine (0.70-1.30) mg/dL 1.1 Est GFR (CKD-EPI 2020) (mL/min/1.73m2) 75.43 Glucose (74-106) mg/dL 83 Calcium (8.5-10.1) mg/dL 8.6 Magnesium (1.8-2.4) mg/dL 1.7 L Total Bilirubin (0.2-1.0) mg/dL 0.8 AST (15-37) U/L 27 ALT (16-63) U/L 27 Alkaline Phosphatase (46-116) U/L 55 Troponin I (<or=60) ng/L < 50 Total Protein (6.4-8.2) g/dL 7.0 Albumin (3.4-5.0) g/dL 3.9
[2023-10-25] MEDS: Omnipaque 350 MG/ML 100 ML BTL 85 ML IJ (13:43)
[2023-10-25] MEDS: Normal Saline - Diluent 50 ML VIAL IJ (13:46)
--- NOTE | 2023-10-25 14:00 | DI.CT_ITS ---
Exam(s) CT BRAIN NECK CTA EXAM: CT BRAIN NECK CTA CLINICAL HISTORY: intermittent vertigo. TECHNIQUE: Imaging Protocol: Axial CT angiography was performed with multi-slice acquisition and mu lti-planar and/or 3D reconstructions. CONTRAST MATERIAL: Intravenous: Omnipaque 350 Contrast volume:structured data in ml COMPARISON: MR MR BRAIN WO from 10/25/2023 FINDINGS: CTA Neck W: Aortic arch anatomy: The aortic arch anatomy is conventional and there is no significant stenosis at the origin of the great vessels off of the aortic arch. No intimal flap evident. Anterior circulation: Both common carotid arteries ascend with normal luminal diameters. At the level the carotid bulbs and proximal internal carotid arteries there is minimal plaque without hemodynamically significant stenosis evident. Posterior circulation: Both vertebral arteries originate in conventional fashion off of the subclavian arteries and there is no obvious stenosis at the origin of the vertebral arteries. Both vertebral arteries exhibit normal luminal diameters within the foramen transversarium. Both vertebral arteries contribute to the formation of the basilar artery at the skull base. CTA Brain W: Anterior circulation: Both internal carotid arteries are patent in the skull base-carotid canals as well as within the cave rnous sinuses. The supraclinoid aspects of the ICAs are patent. Both A1 segments are patent as are the anterior cer ebral arteries and there is no evidence of aneurysm at the level of the anterior communicating artery . Both middle cerebral arteries are patent with no evidence of significant stenosis nor intraluminal th rombus. There also no aneurysms of these vessels. Posterior circulation: The basilar artery ascends in the midline. Distally it gives off patent bilateral superior cerebella r arteries. Above this level the basilar artery terminates as bilateral posterior cerebral arteries. Thinner than the left but there is a posterior communicating artery on the right side of the [place] noted. There is no evidence of aneurysm at the tip of the basilar artery nor elsewhere in the aozkaf-rv-Bsub is. CT BRAIN: There is no evidence of intracranial hemorrhage, mass effect, or shift of midline structures. There are no extra-axial fluid collections. Ventricles are not enlarged or shifted. There are no ring enh ancing lesions in the brain and no abnormal meningeal enhancement. There is some periventricular hypodensity consistent with chronic small vessel disease. This is most prominent around the atrium of the left lateral ventricle. No enhancement at this level. IMPRESSION: 1. Patent carotid arteries in the neck. No hemodynamically significant stenosis. 2. Patent vertebral arteries. 3. Patent intracranial arteries. No ring enhancing lesions in the brain. No abnormal meningeal en hancement. 4. Chronic small-vessel white matter ischemic changes in the periventricular white matter.. This is most evident around the atrium of the left lateral ventricle. Called by myself to ER physician. RADIATION DOSE DELIVERED: Total DLP DATA REPOSITORY: All CT scans at this facility are submitted to the National Radiology Data Registry (NRDR) Dose Index Registry (DIR) with the [employer] ([employer]). RADIATION OPTIMIZATION: All CT scans at this facility use at least one of these dose optimization te chniques: automated exposure control; mA and/or kV adjustment per patient size (includes targeted exa ms where dose is matched to clinical indication); or iterative reconstruction.
[2023-10-25] MEDS: Magnesium Oxide 400 MG TAB PO (14:23)
[2023-10-25] MEDS: Meclizine 25 MG TAB PO (14:24)
[2023-10-25 14:52] LABS: Troponin I < 50 ng/L (<or=60)
== END 2023-10-25 15:37 | disposition home or self-care (01) ==
PROVIDERS: Emergency Provider Student in an Organized Health Care Education/Training Program; PCP Nurse Practitioner Family
DX: R42 Dizziness and giddiness (principal); I10 Essential (primary) hypertension; I45.19 Other right bundle-branch block; F17.210 Nicotine dependence, cigarettes, uncomplicated
CPT/HCPCS: 70496; 70498; 80053; 93005; 99285; 70551; 83735; 84484; 85025; 93010; 99284; J3490

== ENCOUNTER 2023-12-22 13:59 | Outpatient (REF) | payer BC, SELFPAY ==
[2023-12-22 21:09] LABS: ALT 30 U/L (16-63); AST 29 U/L (15-37); Albumin 3.9 g/dL (3.4-5.0); Alkaline Phosphatase 58 U/L (46-116); BUN 25 mg/dL (7-18); Bilirubin, Total 0.9 mg/dL (0.2-1.0); Calculated LDL 92 mg/dL (<100); Chloride 105 mmol/L (98-107); Cholesterol 165 mg/dL (<200); Estimated GFR 84.57 (mL/min/1.73m2); Glucose 76 mg/dL (74-106); HDL Cholesterol 67 mg/dL (40-60); Potassium 4.5 mmol/L (3.5-5.1); Sodium 140 mmol/L (136-145); Total Protein 6.8 g/dL (6.4-8.2); Triglyceride 32 mg/dL (<150)
== END 2023-12-22 14:00 | disposition home or self-care (01) ==
LOC: NCHCN 13:59
PROVIDERS: PCP Nurse Practitioner Family; Visit Provider Nurse Practitioner Family
DX: Z00.00 Encounter for general adult medical examination without abnormal findings (principal); I10 Essential (primary) hypertension; Z13.220 Encounter for screening for lipoid disorders
CPT/HCPCS: 80053; 80061